=== PATIENT | male | born 1985 | race Caucasian/White ===

== ENCOUNTER 2025-04-09 12:25 | Emergency (ER) | payer SELFPAY ==
[~2025-04-09] VITALS: Ht 180.3 cm; Wt 95.0 kg
[2025-04-09 12:57] LABS: BASOPHILS % 1.0 % (0.0-2.0); EOSINOPHILS % 1.5 % (0.0-5.0); HEMATOCRIT. 48.8 % (42.0-52.0); HEMOGLOBIN. 17.2 g/dL (14.0-18.0); LYMPHOCYTES % 37.9 % (20.0-50.0); MEAN PLATELET VOLUME 9.0 fl (7.4-10.4); MONOCYTES % 11.8 % (2.0-8.0); NEUTROPHILS % 47.8 % (40.0-76.0); PLATELET 302 x1000/uL (130-400); RED BLOOD CELL COUNT 5.83 mill/uL (4.7-6.1); RED CELL DISTRIBUTION WIDTH 13.7 % (11.6-14.6)
[2025-04-09] MEDS: ONDANSETRON HCL 4MG/2ML INJ IV ONE (13:08)
[2025-04-09] MEDS: KETOROLAC 15MG/ML VIAL IV ONE (13:08)
[2025-04-09 13:14] LABS: TROPONIN I HIGH SENSITIVITY < 4 ng/L (3.0-53)
[2025-04-09 13:15] LABS: CREATININE 0.8 mg/dL (0.6-1.3); UREA NITROGEN BLOOD 12 mg/dL (9-23)
[2025-04-09 13:16] LABS: ETHANOL BLOOD < 10 mg/dL (<10)
[2025-04-09 13:17] LABS: ASPARTATE AMINOTRANSFERASE 29 IU/L (<34); BILIRUBIN DIRECT < 0.1 mg/dL (<=3.0); BILIRUBIN TOTAL 0.5 mg/dL (0.1-1.0); PROTEIN TOTAL 7.6 g/dL (6.0-8.3)
== END 2025-04-09 14:46 | disposition home or self-care (01) ==
LOC: ER 12:25
DX: I10 Essential (primary) hypertension (principal); G44.209 Tension-type headache, unspecified, not intractable; J45.909 Unspecified asthma, uncomplicated; Z88.0 Allergy status to penicillin
CPT/HCPCS: 80076; 80048; 80320; 85025; 84484; 36415; 71045; 70450; 93005; 96374; 96375; 99285; J1885; J2405; Z7610 ×2; A4606; G0480